=== PATIENT | male | born 1975 | race Caucasian/White ===

== ENCOUNTER 2022-05-04 18:59 | Emergency (ER) | payer SELFPAY ==
[~2022-05-04 18:59] MED LIST: Iopamidol 370 76% 100 ML VIAL ONE
[2022-05-04] MEDS ORDERED: Ondansetron PF 4 MG/2 ML Vial ONE (19:12)
[2022-05-04] MEDS ORDERED: Sodium Chloride 0.9% 500 ML ONE (19:12)
[2022-05-04] MEDS ORDERED: Morphine 4 MG/ML VIAL ONE (19:12)
[2022-05-04 19:35] LABS: Prothrombin Time 13.8 sec (12.0-14.7)
[2022-05-04 19:41] LABS: PTT 22.8 sec (22.9-36.1)
[2022-05-04 19:45] LABS: #Basophils 0.2 thou/uL (0.0-0.2); #Eosinphils 0.2 thou/uL (0.0-0.7); #Lymphocytes 0.7 thou/uL (1.20-3.40); #Monocytes 0.5 thou/uL (0.11-0.59); #Neutrophils 13.4 thou/uL (1.40-6.50); %Eosinophils 1.5 % (0.0-10.0); %Lymphocytes 4.4 % (21.0-51.0); %Monocytes 3.3 % (0.0-10.0); %Neutrophils 89.8 % (42.0-75.0); Hemoglobin 6.2 g/dL (14.0-18.0); Mean Corpuscular HGB CONC 33.3 g/dL (32.0-36.0); Mean Corpuscular Hemoglobin 27.9 pg (27.0-31.0); Mean Corpuscular Volume 83.9 fL (78.0-98.0); Platelet Count 235 thou/uL (130-400); RBC Distribution Width 15.8 % (11.5-14.5); Red Blood Cell (RBC) Count 2.23 mill/uL (4.70-6.10); White Blood Cell (WBC) Count 14.9 thou/uL (4.8-10.8)
[2022-05-04 19:46] LABS: Bicarbonate (HCO3v) 16.8 mmol/L (22.0-28.0); CO2 Tension (PvCO2) 22.4 mmHg (42.0-51.0); Calcium, Ionized 0.98 mmol/L (1.15-1.33); Chloride 109 mmol/L (98-107); Hemoglobin - Calc 6.4 g/dL (14.0-18.0); Potassium 4.1 mmol/L (3.5-5.1); Sodium 136 mmol/L (138-145); T. Carbon Dioxide 17.5 mmol/L (22.0-28.0); vO2 Saturation-calc 99.7 % (60.0-85.0)
[2022-05-04 19:48] LABS: ALT (SGPT) 22 U/L (8-55); AST (SGOT) 13 U/L (5-34); Albumin 3.1 g/dL (3.5-5.0); Alkaline Phosphatase 72 U/L (40-110); Anion Gap 15 mmol/L (10-20); BUN (Urea Nitrogen) 79 mg/dL (8.9-20.6); Bilirubin, Total 0.3 mg/dL (0.2-1.2); Calc. Creatinine Clearance 0 mL/min (70-130); Calcium 7.9 mg/dL (7.8-10.44); Carbon Dioxide 18 mmol/L (22-29); Chloride 108 mmol/L (98-107); Globulin 1.9 g/dL (2.4-3.5); Glucose 192 mg/dL (70-105); Lipase 31 U/L (8-78); Magnesium 2.1 mg/dL (1.6-2.6); Potassium 4.1 mmol/L (3.5-5.1); Sodium 137 mmol/L (136-145)
[2022-05-04 20:03] LABS: CKMB 2.5 ng/mL (0-6.6)
[2022-05-04] MEDS ORDERED: Fentanyl 100 MCG/2 ML VIAL ONE (20:42)
== END 2022-05-04 21:15 | disposition short-term general hospital (02) ==
LOC: MADERS 18:59
DX: S37.032A Laceration of left kidney, unspecified degree, initial encounter (principal); T80.818A Extravasation of other vesicant agent, initial encounter; R57.8 Other shock; N99.89 Other postprocedural complications and disorders of genitourinary system; I11.0 Hypertensive heart disease with heart failure; I50.9 Heart failure, unspecified; D64.9 Anemia, unspecified; Z79.899 Other long term (current) drug therapy
CPT/HCPCS: 36415; 36430; 74177; 80053; 82330; 82553; 82803; 83690; 83735; 83880; 84484; 85014; 85025; 85610; 85730; 86850; 86900; 86901; 87040; 96361; 96374; 96375; J2270; J2405; J3010; J7030; P9016; P9048; Q9967